=== PATIENT | female | born 1955 | race Caucasian/White ===

== ENCOUNTER → 2017-05-20 | Outpatient (CLI) | payer MEDICAID ==
[~2017-05-20] MED LIST: ACET-1600 PO; ALBU8.5H8 INH; ASPI-496 PO; CYCL-259 PO; DOXE25CA PO; IBUP-1223 PO; LORA1TAB PO; MULT-658 PO; NICO2GUM5 PO; OMEG-76 PO; OXYC1TAB7 PO; PROP10TA PO; vitamin d PO
[2017-05-20 13:08] LABS: HEMATOCRIT 45.6 % (34.6-47.8); HEMOGLOBIN 15.3 g/dL (11.7-16.4); WHITE BLOOD COUNT 12.9 x10^3/uL (3.4-10)
[2017-05-20 13:17] LABS: BLOOD UREA NITROGEN 11 mg/dL (7-18)
== END | disposition home or self-care (01) ==
LOC: STAR 11:23
PROVIDERS: ATTEND Orthopaedic Surgery Orthopaedic Surgery of the Spine
DX: Z01.818 Encounter for other preprocedural examination (principal); J44.9 Chronic obstructive pulmonary disease, unspecified; J98.4 Other disorders of lung; M43.16 Spondylolisthesis, lumbar region; M54.16 Radiculopathy, lumbar region; Z87.891 Personal history of nicotine dependence; Z86.79 Personal history of other diseases of the circulatory system
CPT/HCPCS: 36415; 71020; 80048; 81001; 85025; 87086; 93005

== ENCOUNTER 2017-06-03 08:55 | Observation (INO) | payer MEDICAID, MEDICARE ==
[~2017-06-03] VITALS: Ht 165.1 cm; Wt 90.4 kg
[~2017-06-03 08:55] MED LIST changes: +BUPIVACAINE LIPOSOME/PF INFIL ONE; +BUPIVACAINE/PF 0.5% ONE; +FENTANYL PF 100 MCG/2ML ONE; +LIDOCAINE/MPF 2%-EPI 1:200K, 20 ML ONE; +MIDAZOLAM 1 MG/ML, 2ML ONE; +THROMBIN 5,000 UNIT VIAL TP ONE; +TRANEXAMIC ACID 100 MG/ML, 10ML ONE; +VANCOMYCIN 1,000 MG ONE
[2017-06-03] MEDS ORDERED: LIDOCAINE 1%, 2ML ONE ×2 (09:04)
[2017-06-03] MEDS: LACTATED RINGERS 1,000 ML IV SCH ×2 (09:19→22:18)
[2017-06-03] MEDS ORDERED: DEXAMETHASONE 4 MG/ML, 1ML ONE (09:47)
[2017-06-03] MEDS ORDERED: METOPROLOL 1 MG/ML, 5ML ONE (09:47)
[2017-06-03] MEDS ORDERED: CEFAZOLIN 1,000 MG ONE (09:47)
[2017-06-03] MEDS ORDERED: ROCURONIUM 10 MG/ML ONE (09:47)
[2017-06-03] MEDS ORDERED: PROPOFOL 10 MG/ML, 20ML ONE (09:47)
[2017-06-03] MEDS ORDERED: PROMETHAZINE 25 MG/ML, 1ML IV PRN (10:30)
[2017-06-03] MEDS ORDERED: ALBUTEROL SULFATE 2.5 MG/3 ML NPPB PRN (10:30)
[2017-06-03] MEDS ORDERED: MEPERIDINE/PF 25MG/0.5ML IVPush PRN (10:30)
[2017-06-03] MEDS ORDERED: HYDROmorphone 1 MG/ML, 1ML IV PRN (10:30)
[2017-06-03] MEDS ORDERED: hydrALAzine 20 MG/ML, 1ML IV PRN (10:30)
[2017-06-03] MEDS ORDERED: DIAZEPAM 5 MG/ML, 2ML IVPush PRN (10:30)
[2017-06-03] MEDS ORDERED: OXYcodone 5 MG/5 ML ORAL.SOL UDC PO PRN (10:30)
[2017-06-03] MEDS ORDERED: FENTANYL PF 100 MCG/2ML IV PRN (10:30)
[2017-06-03] MEDS ORDERED: ONDANSETRON 2MG/ML, 2ML IVPush PRN (10:30)
[2017-06-03] MEDS ORDERED: LABETALOL 5MG/ML, 20ML IV PRN (10:30)
[2017-06-03] MEDS ORDERED: ALBUTEROL/IPRATROPIUM 2.5MG/0.5MG, 3 ML NPPB PRN (10:30)
[2017-06-03] MEDS ORDERED: ACETAMINOPHEN 325 MG TABLET PO PRN ×2 (10:30→11:00)
[2017-06-03] MEDS ORDERED: MIDAZOLAM 1 MG/ML, 2ML IV PRN (10:30)
[2017-06-03] MEDS ORDERED: HYDROmorphone 1 MG/ML, 1ML IVPush PRN (11:00)
[2017-06-03] MEDS ORDERED: BISACODYL 10 MG SUPP PR PRN (11:00)
[2017-06-03] MEDS ORDERED: MAGNESIUM HYDROXIDE 8%, 30ML UDC PO PRN (11:00)
[2017-06-03] MEDS ORDERED: PHARMACY MAY ADJ FOR RENAL FX MC PRN (11:00)
[2017-06-03] MEDS ORDERED: SENNA/DOCUSATE TABLET PO PRN (11:00)
[2017-06-03] MEDS ORDERED: DIAZEPAM 5 MG TABLET PO PRN (11:00)
[2017-06-03] MEDS ORDERED: OXYcodone/APAP 5/325MG TABLET PO PRN (11:30)
[2017-06-03] MEDS ORDERED: CYCLOBENZAPRINE 10 MG TABLET PO PRN (11:30)
[2017-06-03] MEDS ORDERED: LORazepam 1MG TABLET PO PRN (11:30)
[2017-06-03] MEDS ORDERED: NICOTINE GUM 2 MG BC PRN (11:30)
[2017-06-03] MEDS ORDERED: ACETAMINOPHEN 500 MG TABLET PO PRN (11:30)
[2017-06-03] MEDS ORDERED: HYDROmorphone 1 MG/ML, 1ML ONE (12:01)
[2017-06-03] MEDS ORDERED: TRANEXAMIC ACID 100 MG/ML, 10ML ONE (13:08)
[2017-06-03] MEDS ORDERED: OXYcodone 5 MG/5 ML ORAL.SOL UDC ONE (13:12)
[2017-06-03] MEDS ORDERED: ACETAMINOPHEN 325 MG TABLET ONE (13:13)
[2017-06-03] MEDS ORDERED: ACETAMINOPHEN 650 MG/20.3 ML UDC ONE (13:13)
[2017-06-03] MEDS ORDERED: FENTANYL PF 100 MCG/2ML ONE (13:13)
[2017-06-03] MEDS: DIAZEPAM 5 MG TABLET PO PRN (17:20)
[2017-06-03] MEDS: CEFAZOLIN PMX 1GM/50ML 50 ML IVPB SCH (18:12)
[2017-06-03] MEDS: OXYcodone/APAP 5/325MG TABLET PO PRN ×2 (18:29→22:56)
[2017-06-03 20:00] VITALS: BP 105/59
[2017-06-03] MEDS ORDERED: PROPRANOLOL 10 MG TABLET PO SCH (21:00)
[2017-06-03] MEDS ORDERED: DOXEPIN 25 MG CAPSULE PO SCH (21:00)
[2017-06-04] VITALS: BP 108/61
[2017-06-04] MEDS: CEFAZOLIN PMX 1GM/50ML 50 ML IVPB SCH (02:05)
[2017-06-04] MEDS: OXYcodone/APAP 5/325MG TABLET PO PRN ×3 (03:05→11:18)
[2017-06-04] MEDS: DIAZEPAM 5 MG TABLET PO PRN ×2 (05:48→14:42)
[2017-06-04 07:24] VITALS: BP 109/61
[2017-06-04] MEDS ORDERED: ASPIRIN 81 MG TABLET EC PO SCH (09:00)
[2017-06-04 12:47] VITALS: BP 139/75
[2017-06-04 14:44] VITALS: BP 122/60
[2017-06-04] MEDS ORDERED: PNEUMOCOCCAL 23 VACCINE IM-VACC ONE (15:00)
[2017-06-04] MEDS ORDERED: FLU VACC QS2017-18 (36MOS+) UP/PF 0.5 ML IM-VACC ONE (15:00)
== END 2017-06-04 15:48 | disposition home or self-care (01) ==
LOC: ORIP 08:55 → INTOOBSV 08:55 → 4NOR 14:21
PROVIDERS: ADMIT Orthopaedic Surgery Orthopaedic Surgery of the Spine; ATTEND Orthopaedic Surgery Orthopaedic Surgery of the Spine
DX: M51.36 Other intervertebral disc degeneration, lumbar region (principal); M43.16 Spondylolisthesis, lumbar region; M48.061 Spinal stenosis, lumbar region without neurogenic claudication; Z23 Encounter for immunization; F41.9 Anxiety disorder, unspecified
CPT/HCPCS: 20931; 20937; 22630; 22840; 22853; 72100; 90471; 90472; 90686; 90732; 96365; 96375; 97162; 97530; C1713; C1762; C1767; C9290; G0378; J0690; J1100; J1170; J2250; J2704; J3010; J3370; J3490; J7120